=== PATIENT | male | born 1990 | race Caucasian/White ===

== ENCOUNTER 2025-01-21 02:31 | Emergency (ER) | payer OTHER ==
[2025-01-21] MEDS ORDERED: Tdap Vaccine 0.5 ML SYR (Adult Vaccine) IM ONE (04:25)
[2025-01-21] MEDS ORDERED: Bacitracin Zinc 14 GM TUBE T ONE (05:30)
== END 2025-01-21 05:29 | disposition home or self-care (01) ==
LOC: ED 02:31
DX: S50.819A Abrasion of unspecified forearm, initial encounter (principal); Y04.0XXA Assault by unarmed brawl or fight, initial encounter; Y93.89 Activity, other specified; Y92.89 Other specified places as the place of occurrence of the external cause; Y99.8 Other external cause status